=== PATIENT | female | born 1980 | race Caucasian/White ===

== ENCOUNTER 2017-07-30 22:45 | Emergency (ER) | payer OTHER ==
[~2017-07-30] VITALS: Wt 64.0 kg
[~2017-07-30 22:45] MED LIST: PREN1TAB49 PO
[2017-07-31 01:06] LABS: ADD UMIC YES; UR ASCORBIC ACID NEGATIVE (NEGATIVE); UR BACTERIA FEW /HPF (NONE SEEN); UR BILIRUBIN (Dip) NEGATIVE (NEGATIVE); UR BLOOD (Dip) 3+ mg/dL (NEGATIVE); UR CLARITY CLEAR (CLEAR); UR COLOR STRAW (YELLOW); UR GLUCOSE (Dip) NEGATIVE (NEGATIVE); UR KETONES (Dip) NEGATIVE (NEGATIVE); UR LEUKOCYTE ESTERASE (Dip) NEGATIVE Leu/ul (NEGATIVE); UR NITRITE (Dip) NEGATIVE (NEGATIVE); UR RBC 23 /HPF (0-5); UR SPECIFIC GRAVITY (Dip) 1.004 (1.003-1.030); UR SQUAMOUS EPITHELIAL CELL FEW /HPF (FEW); UR TOTAL PROTEIN (Dip) NEGATIVE (NEGATIVE); UR UROBILINOGEN (Dip) NEGATIVE (NEGATIVE)
[2017-07-31 01:23] LABS: BASOPHIL # 0.1 10^3/ul (0.0-0.1); BASOPHILS % 0.9 % (0.0-2.0); EOSINOPHILS # 0.2 10^3/ul (0.0-0.5); EOSINOPHILS % 3.1 % (0.0-7.0); HEMATOCRIT 37.4 % (37.0-47.0); HEMOGLOBIN 12.1 g/dl (12.0-16.0); LYMPHOCYTES # 2.3 10^3/ul (0.8-2.9); LYMPHOCYTES % 29.5 % (15.0-51.0); MEAN CORPUSCULAR HEMOGLOBIN 26.2 pg (29.0-33.0); MEAN CORPUSCULAR HGB CONC 32.4 g/dl (32.0-37.0); MEAN PLATELET VOLUME 11.3 fl (7.4-10.4); MONOCYTE # 0.5 10^3/ul (0.3-0.9); MONOCYTES % 6.3 % (0.0-11.0); NEUTROPHILS % 59.8 % (39.0-77.0); PLATELET COUNT 193 10^3/UL (140-415); RED BLOOD COUNT 4.62 10^6/ul (4.20-5.40); RED CELL DISTRIBUTION WIDTH 15.2 % (11.5-14.5); WHITE BLOOD COUNT 7.8 10^3/ul (4.8-10.8)
--- NOTE | 2017-07-31 01:55 | RADRPT ---
PROCEDURE: FIRST TRIMESTER OBSTETRICAL ULTRASOUND: CLINICAL INDICATION: 36 years of age, female. Vaginal bleeding COMPARISON: None available. TECHNIQUE: Real-time sonographic images of the pelvis were obtained transabdominally and transvagina lly utilizing holland scale, color, and Doppler imaging. FINDINGS: LMP May 18, 2017 EGA by dates:10 weeks 3 days EMBER by dates: February 22, 2018 Uterus: Anteverted . Myometrium is normal. Gestational sac: There is an intrauterine gestational sac. Negative for evidence of a yolk sac or em bryo. Mean sac diameter measures 1.4 cm, compatible with an average ultrasound age of 6 weeks 0 days . Cervix: Closed. Right ovary: Size: 3.2 x 1.8 x 2.2 cm. (Vol 6.8 mL) Appearance: Normal morphology. No masses. Dominant follicle or corpus luteum measures 2 cm. Venous f low is identified. Left ovary: Size: 2.5 x 1.4 x 1.6 cm. (Vol 3 mL) Appearance: Normal morphology. No masses. Venous flow is identified. Bladder: Visualized bladder is normal. Other: No free fluid. IMPRESSION: Sac-like structure in the endometrial cavity likely represents an intrauterine of unknown viability. The estimated gestational age by mean sac diameter would be 6 weeks 0 days. This is disco rdant with the expected gestational age by dates. Because an embryo or yolk sac are not identified, a definitive diagnosis of intrauterine cannot be made and ectopic cannot be abso lutely excluded but is extremely unlikely. Furthermore, viability cannot be established. Recommend c orrelation with serial Beta HCG and follow-up ultrasound in 7-10 days or earlier if clinically indic ated. RPTAT: HCTS Physician Leanne Date Time Electronically viewed and signed by Physician Leanne on 07/31/2017 01:54 CS/
--- NOTE | 2017-07-31 04:31 | ERD ---
ER Documentation Chief Complaint Date/Time DATE: 07/31/17 TIME: 04:28 Chief Complaint Vaginal bleed, pelvic pain today 8 weeks HPI 36-year-old female coming in complaining of vaginal bleeding with left-sided pelvic pain 1 day. Patient states she is 8 weeks . LMP May 18. Being seen at [facility]. Has not had an ultrasound today. A1. States she had some clots earlier today with some diffuse abdominal cramping. ROS All systems reviewed and are negative except as per history of present illness. Medications Home Meds Reported Medications Vits W-Ca,Fe,Fa(<1MG) () 1 Tab Tablet, 1 TAB PO DAILY 11/29/12 Allergies Allergies: Coded Allergies: No Known Allergy (Verified Allergy, Unknown, 06/05/08) PMhx/Soc History of Surgery: Yes (c/s x4) Hx Alcohol Use: No Hx Substance Use: No Hx Tobacco Use: No Smoking Status: Never smoker Physical Exam Vitals Vital Signs Date Time Temp Pulse Resp B/P Pulse Ox O2 Delivery O2 Flow Rate FiO2 07/30/17 23:09 98.1 75 20 115/64 100 Physical Exam GENERAL: The patient is well-appearing, well-nourished, in no acute distress CHEST: Clear to auscultation bilaterally. There are no rales, wheezes or rhonchi. HEART: Regular rate and rhythm. No murmurs, clicks, rubs or gallops. No S3 or S4. ABDOMEN: Normoactive bowel sounds. Soft abdomen. Mild tenderness to palpation in the left lower quadrant. No rebound tenderness. No organomegaly. BACK: No midline or flank tenderness. Result Diagram: 07/31/17 0105 Results 24 hrs Laboratory Tests Test 07/31/17 00:20 07/31/17 01:05 Urine Color STRAW Urine Clarity CLEAR Urine pH 7.0 Urine Specific [place] 1.004 Urine Ketones NEGATIVEmg/dL Urine Nitrite NEGATIVEmg/dL Urine Bilirubin NEGATIVEmg/dL Urine Urobilinogen NEGATIVEmg/dL Urine Leukocyte Esterase NEGATIVELeu/ul Urine Microscopic RBC 23/HPF Urine Microscopic WBC 1/HPF Urine Squamous Epithelial Cells FEW/HPF Urine Bacteria FEW/HPF Urine Hemoglobin 3+mg/dL Urine Glucose NEGATIVEmg/dL Urine Total Protein NEGATIVEmg/dl White Blood Count 7.810^3/ul Red Blood Count 4.6210^6/ul Hemoglobin 12.1g/dl Hematocrit 37.4% Mean Corpuscular Volume 81.0fl Mean Corpuscular Hemoglobin 26.2pg Mean Corpuscular Hemoglobin Concent 32.4g/dl Red Cell Distribution Width 15.2% Platelet Count 65841^3/UL Mean Platelet Volume 11.3fl Neutrophils % 59.8% Lymphocytes % 29.5% Monocytes % 6.3% Eosinophils % 3.1% Basophils % 0.9% Nucleated Red Blood Cells % 0.0/100WBC Neutrophils # (Manual) 4.710^3/ul Lymphocytes # 2.310^3/ul Monocytes # 0.510^3/ul Eosinophils # 0.210^3/ul Basophils # 0.110^3/ul Nucleated Red Blood Cells # 0.010^3/ul Beta HCG, Quantitative 01275.0mIU/ml Procedures/MDM ER course: Dr. Reza GELATIN [employer] was consulted given patient has a beta quant level of over 17,000 and left lower quadrant pain. Laborers recommend patient return within 2 days for reevaluation. She had low concern for ectopic at today's visit. MDM: I have low suspicion for ectopic however cannot be completely excluded at this time. Patient is recommended to return in 2 days for recheck of beta quant and ultrasound. I have low suspicion for hemodynamic instability as patient's vital signs are stable and patient is not having severe bleeding. Patient's Rh is positive, no indication for RhoGam injection. No signs of urinary tract infection on urinalysis. Patient is given strict ER precautions and will return within 2 days for reevaluation. All questions answered at discharge. Departure Diagnosis: Primary Impression: Threatened Condition: Stable Patient Instructions: Possible Miscarriage (Threatened ) Additional Instructions: FOLLOW UP WITH YOUR PRIMARY CARE PHYSICIAN TOMORROW.Return to this facility if you are not improving as expected. LATOYA BENTLEY PA-C Jul 31, 2017 04:31
[2017-07-31 04:45] VITALS: BP 109/67; PULSE 73; RESP 17; TEMP 97.9
== END 2017-07-31 04:45 | disposition home or self-care (01) ==
LOC: FTE 22:45
DX: O20.0 Threatened abortion (principal); R10.2 Pelvic and perineal pain; Z3A.01 Less than 8 weeks gestation of pregnancy
CPT/HCPCS: 76801; 76817; 81001; 84702; 85025; 86900; 86901; Z7502

== ENCOUNTER 2017-08-02 17:45 | Emergency (ER) | payer OTHER ==
[~2017-08-02] VITALS: Ht 160 cm; Wt 63.5 kg
[2017-08-02 19:04] VITALS: Ht 160 cm; Wt 63.5 kg
[2017-08-02] MEDS ORDERED: ACETAMINOPHEN 325 MG TAB PO STA (23:31)
[2017-08-02] MEDS ORDERED: SOD CHLORIDE 0.9% 1,000 ML IV STA (23:31)
--- NOTE | 2017-08-02 23:31 | ERD ---
ER Documentation Chief Complaint Date/Time DATE: 08/02/17 TIME: 23:22 Chief Complaint 6 wks , vag bleeding HPI This , 6 weeks , vaginal bleeding x 3 days, abd cramping, headache pt reports that she is passing clots and changing minnie pad every 3-5 hours. Patient denies nausea, vomiting, fever, chills. ROS All systems reviewed and are negative except as per history of present illness. Medications Home Meds Reported Medications Vits W-Ca,Fe,Fa(<1MG) () 1 Tab Tablet, 1 TAB PO DAILY 11/29/12 Allergies Allergies: Coded Allergies: No Known Allergy (Verified , 08/02/17) PMhx/Soc Medical and Surgical Hx: pt denies Medical Hx History of Surgery: Yes (c/s x4) Anesthesia Reaction: No Hx Neurological Disorder: No Hx Respiratory Disorders: No Hx Cardiac Disorders: No Hx Psychiatric Problems: No Hx Miscellaneous Medical Probl: No Hx Alcohol Use: No Hx Substance Use: No Hx Tobacco Use: No Smoking Status: Never smoker Physical Exam Vitals Vital Signs Date Time Temp Pulse Resp B/P Pulse Ox O2 Delivery O2 Flow Rate FiO2 08/02/17 19:04 99.0 78 20 124/64 100 Physical Exam Const: [] Head: Atraumatic Eyes: Normal Conjunctiva ENT: Normal External Ears, Nose and Mouth. Neck: Full range of motion..~ No meningismus. Resp: Clear to auscultation bilaterally Cardio: Regular rate and rhythm, no murmurs Abd: Soft, non tender, non distended. Normal bowel sounds Skin: No petechiae or rashes Back: No midline or flank tenderness Ext: No cyanosis, or edema Neur: Awake and alert Psych: Normal Mood and Affect Result Diagram: 08/02/17 0200 Results 24 hrs Laboratory Tests Test 08/02/17 23:40 08/03/17 00:40 White Blood Count 11.310^3/ul Red Blood Count 4.5810^6/ul Hemoglobin 12.1g/dl Hematocrit 37.0% Mean Corpuscular Volume 80.8fl Mean Corpuscular Hemoglobin 26.4pg Mean Corpuscular Hemoglobin Concent 32.7g/dl Red Cell Distribution Width 15.2% Platelet Count 12018^3/UL Mean Platelet Volume 11.9fl Neutrophils % 72.0% Lymphocytes % 21.1% Monocytes % 5.0% Eosinophils % 1.0% Basophils % 0.5% Nucleated Red Blood Cells % 0.0/100WBC Neutrophils # (Manual) 8.210^3/ul Lymphocytes # 2.410^3/ul Monocytes # 0.610^3/ul Eosinophils # 0.110^3/ul Basophils # 0.110^3/ul Nucleated Red Blood Cells # 0.010^3/ul Beta HCG, Quantitative 06376.0mIU/ml Urine Color RED Urine Clarity CLOUDY Urine pH 6.0 Urine Specific [place] 1.012 Urine Ketones 1+mg/dL Urine Nitrite NEGATIVEmg/dL Urine Bilirubin NEGATIVEmg/dL Urine Urobilinogen NEGATIVEmg/dL Urine Leukocyte Esterase 1+Mary/ul Urine Hemoglobin 3+mg/dL Urine Glucose NEGATIVEmg/dL Urine Total Protein 2+mg/dl Current Medications Medications (Trade) Dose Ordered Sig/Krishna Route PRN Reason Start Time Stop Time Status Last Admin Dose Admin Sodium Chloride (NS) 1,000 ml @ 1,000 mls/hr Q1H STAT IV 08/02/17 23:31 08/03/17 00:30 DC 08/03/17 00:32 Acetaminophen (Tylenol Tab) 650 mg ONCE STAT PO 08/02/17 23:31 08/02/17 23:33 DC 08/03/17 00:31 Interpretation text CBC shows no evidence of hemorrhage or infection, WBCs are slightly elevated at 11.3 this is not an abnormal finding in Urinalysis positive for leukocytosis, hematuria, negative for nitrates. Findings consistent with a urinary tract infection patient will start on Keflex 500 mg 3 times daily 7 days. Beta hCG quantitative 12,637.mlU/ml finding in range for a 6 weeks . Procedures/MDM This 36-year-old female presents to emergency department for evaluation of vaginal bleeding. Patient is , 6 weeks , reports bleeding 3 days. Reports cramping, clots, headache, denies nausea or vomiting. Patient is wearing a minnie-pad states she is having to change it every 3-4 hours.Diagnostic OB ultrasound findings by radiologist irregular intrauterine gestational sac with no pole or yolk sac identified corresponding to gestational age of 5 weeks 5 days by ultrasound criteria, decreased in size when compared with prior exam on 07/31/17 while this may reflect failed early , anembryonic , a pseudo-gestational sac related to an ectopic is not excluded and short interval follow-up is recommended Beta hCG quantitative 12,637.mlU/ml, This is down from 17,000 48 hours ago. Plan to discharge patient home with Keflex 500 mg 3 times daily 7 days for urinary tract infection, return in 48 hours for repeat ultrasound and laboratory testing, return to emergency department for increased bleeding, clots , nausea or vomiting. Patient is stable with no new complaints during ER course , clinically there is no current evidence to suggest Ovarian torsion, molar , or any other emergent condition appearing to require further evaluation or hospitalization. I feel the patient is stable for discharge at this time. I have discussed results, examination findings, the treatment plan with the patient and family present prior to discharge. Indications for emergent reevaluation, side effects of medication were also discussed. All questions were answered. Patient verbalizes understanding and agrees with plan of care. Departure Diagnosis: Primary Impression: Vaginal bleeding in patient at less than 20 weeks gestation Additional Impressions: Threatened miscarriage in early UTI (urinary tract infection) Urinary tract infection type: acute cystitis Hematuria presence: with hematuria Qualified Code: N30.01 - Acute cystitis with hematuria Condition: Good Patient Instructions: Bleeding During Early Additional Instructions: Return to emergency department in 48 hours for repeat ultrasound and laboratory testing Comments Thank you for for coming to [facility] for your care today. Please ask your nurse or provider if you have questions about your care today and do not leave until all your questions have been answered. Please use any medications given as directed and follow-up with your doctor (or the doctor you were referred to) in the next 2-3 days. If you do not have a primary care doctor you may follow up at the [facility] [place] (listed below). You may also use motrin and tylenol as needed for fever and/or pain unless instructed otherwise by your provider or nurse. Indications for more urgent follow-up have been discussed, but you may return to the Emergency Department at ANY time for any worrisome or worsening symptoms. If you have abdominal pain, please know that no test or exam you received is perfect and you should follow up within 8 hours for continued pain. If you had any imaging studies today, such as an X-Ray or CT Scan, these studies will be reviewed later by a radiologist. You will be called if there are important findings that were not identified today, so make sure the contact information you provided at registration is correct. If you received any narcotic pain control medicine today, such as Vicodin, Morphine or Dilaudid, your coordination and judgment may be affected for a number of hours. Please do not drive or operate heavy machinery, and you may want someone to assist you at home. If you were given a prescription for narcotic medication, be aware that it is very addictive- use sparingly and only if necessary. VIJAY MEZA Aug 02, 2017 23:30
[2017-08-03 00:07] LABS: BASOPHIL # 0.1 10^3/ul (0.0-0.1); BASOPHILS % 0.5 % (0.0-2.0); EOSINOPHILS # 0.1 10^3/ul (0.0-0.5); HEMOGLOBIN 12.1 g/dl (12.0-16.0); LYMPHOCYTES # 2.4 10^3/ul (0.8-2.9); LYMPHOCYTES % 21.1 % (15.0-51.0); MEAN CORPUSCULAR HEMOGLOBIN 26.4 pg (29.0-33.0); MEAN CORPUSCULAR HGB CONC 32.7 g/dl (32.0-37.0); MEAN CORPUSCULAR VOLUME 80.8 fl (82.0-101.0); MEAN PLATELET VOLUME 11.9 fl (7.4-10.4); MONOCYTE # 0.6 10^3/ul (0.3-0.9); PLATELET COUNT 187 10^3/UL (140-415); RED BLOOD COUNT 4.58 10^6/ul (4.20-5.40); RED CELL DISTRIBUTION WIDTH 15.2 % (11.5-14.5); WHITE BLOOD COUNT 11.3 10^3/ul (4.8-10.8)
--- NOTE | 2017-08-03 00:16 | RADRPT ---
PROCEDURE: US OB. CLINICAL INDICATION: Vaginal bleeding. TECHNIQUE: Transabdominal and transvaginal sonographic evaluation of the pelvis using holland scale an d color Doppler imaging was performed. COMPARISON: Ultrasound dated 07/31/2017. FINDINGS: There is an irregular gestational sac with no pole or yolk sac identified. The mean sac diameter equals 1.11 cm. The estimated gestational age equals 5 weeks 5 days by ultrasound criteria decreased in size when co mpared the prior examination. No subchorionic hemorrhage is identified. Right ovary: 2.6 x 2.3 x 2.4 cm. Normal flow and echogenicity. Left ovary: 3.0 x 1.6 x 1.7 cm. Normal flow and echogenicity IMPRESSION: 1. Irregular intrauterine gestational sac with no pole or yolk sac identified corresponding t o a gestational age of 5 weeks 5 days by ultrasound criteria, decreased in size when compared with t he prior exam of 07/31/2017. While this may reflect failed early /anembryonic , a pseudogestational sac related to an ectopic is not excluded and short interval follow-up i s recommended. RPTAT: HLBP .Valentín Stallworth MD, Date Time Electronically viewed and signed by .Valentín Stallworth MD, MD on 08/03/2017 00:16 .P/
[2017-08-03 01:48] LABS: ADD UMIC YES; UR ASCORBIC ACID NEGATIVE (NEGATIVE); UR BILIRUBIN (Dip) NEGATIVE (NEGATIVE); UR BLOOD (Dip) 3+ mg/dL (NEGATIVE); UR CLARITY CLOUDY (CLEAR); UR COLOR RED (YELLOW); UR GLUCOSE (Dip) NEGATIVE (NEGATIVE); UR KETONES (Dip) 1+ mg/dL (NEGATIVE); UR LEUKOCYTE ESTERASE (Dip) 1+ Leu/ul (NEGATIVE); UR NITRITE (Dip) NEGATIVE (NEGATIVE); UR SPECIFIC GRAVITY (Dip) 1.012 (1.003-1.030); UR TOTAL PROTEIN (Dip) 2+ mg/dl (NEGATIVE); UR UROBILINOGEN (Dip) NEGATIVE (NEGATIVE)
[2017-08-03] MEDS ORDERED: CEPH-443 PO (02:11)
[2017-08-03] MEDS ORDERED: CEPHALEXIN 500 MG CAP PO ONE (02:30)
[2017-08-03 02:33] VITALS: BP 115/72; PULSE 65; RESP 16
== END 2017-08-03 02:35 | disposition home or self-care (01) ==
LOC: FTE 17:45
DX: O20.0 Threatened abortion (principal); O23.11 Infections of bladder in pregnancy, first trimester; Z3A.01 Less than 8 weeks gestation of pregnancy
CPT/HCPCS: 76801; 76817; 81001; 84702; 85025; J7030; Z7502; Z7610

== ENCOUNTER 2017-08-05 08:51 | Emergency (ER) | payer OTHER ==
[2017-08-05] VITALS (7 sets, daily range): BP systolic 98–105; BP diastolic 49–64; PULSE 62–70; RESP 16–18; TEMP 98.5
[~2017-08-05] VITALS: Wt 64.6 kg
[~2017-08-05 08:51] MED LIST changes: +CEFAZOLIN 1 GM INJ ONE; +CEPH-443 PO; +SEVOFLURANE 15 MIN ONE
[2017-08-05] MEDS ORDERED: ACETAMINOPHEN 500 MG TAB PO STA (09:28)
[2017-08-05 09:52] LABS: BASOPHIL # 0.1 10^3/ul (0.0-0.1); BASOPHILS % 0.9 % (0.0-2.0); EOSINOPHILS # 0.1 10^3/ul (0.0-0.5); EOSINOPHILS % 1.6 % (0.0-7.0); HEMATOCRIT 34.6 % (37.0-47.0); LYMPHOCYTES # 2.1 10^3/ul (0.8-2.9); LYMPHOCYTES % 25.8 % (15.0-51.0); MEAN CORPUSCULAR HGB CONC 31.8 g/dl (32.0-37.0); MEAN CORPUSCULAR VOLUME 81.8 fl (82.0-101.0); MEAN PLATELET VOLUME 11.9 fl (7.4-10.4); MONOCYTE # 0.4 10^3/ul (0.3-0.9); MONOCYTES % 5.4 % (0.0-11.0); NEUTROPHIL # 5.3 10^3/ul (1.6-7.5); NEUTROPHILS % 65.9 % (39.0-77.0); PLATELET COUNT 179 10^3/UL (140-415); RED BLOOD COUNT 4.23 10^6/ul (4.20-5.40); RED CELL DISTRIBUTION WIDTH 15.3 % (11.5-14.5)
--- NOTE | 2017-08-05 10:18 | RADRPT ---
PROCEDURE: OBSTETRICAL ULTRASOUND WITH ENDOVAGINAL IMAGES CLINICAL INDICATION: Vaginal Bleed () TECHNIQUE: Multiple sonographic images of the pelvis were obtained utilizing a transabdominal and endovaginal technique. The images were reviewed on a PACS workstation. COMPARISON: Obstetrical ultrasound from 08/02/2017 LMP: 06/17/2017 Gestational age by LMP: 7 weeks, 0 days FINDINGS: The uterus measures 10.4 x 5.2 x 6.1 cm. The endometrium is focally heterogeneous and thickened at the level of the lower uterine segment, me asuring up to 28 mm. No abnormal vascularity is identified in the endometrium although there is an i rregular sac-like structure within it measuring up to 1.1 x 1.0 cm in maximum axial dimensions which has decreased in size since the prior ultrasound study from 08/02/2017. The right ovary measures 3.4 x 2.3 x 1.8 cm. The left ovary measures 2.9 x 2.1 x 2.0 cm. There is no rmal vascular flow in both ovaries. There is a 1.4 cm thick-walled cystic lesion in the right ovary which may be a hemorrhagic/corpus susy teal cyst. It is not associated with significant vascular flow. No significant pelvic free fluid is identified. IMPRESSION: Focal heterogeneity and thickening of the endometrium to 28 mm at the level of the lower uterine seg ment with an irregular cystic lesion identified in the endocervical canal at this level measuring up to 1.1 cm which is decreased in size. Findings suggest an in progress although an ectopic is not entirely excluded. Short-term follow-up ultrasound and serial Beta HCG measurements are recommended for further evaluation. 1.4 cm complex cystic lesion in the right ovary may be a hemorrhagic/corpus luteal cyst. Attention o n follow-up is recommended. RPTAT: EE Physician J Carlos Date Time Electronically viewed and signed by Johnathan Martínez Physician on 08/05/2017 10:18 /
--- NOTE | 2017-08-05 10:44 | ERD ---
ER Documentation Chief Complaint Date/Time DATE: 08/05/17 TIME: 10:43 Chief Complaint 6 WEEKS PREG SENT FOR LAB WORK HPI This a 36-year-old female presents emergency department today complaining of vaginal bleeding, States she has some crampy abdominal pain, headache. States that she was seen here couple of days ago for the same thing. States that she is approximately 6 weeks . States she has not gone to her technical sales engineer or primary care doctor. States she has not taken any medication for the pain because "she was not given any". Denies any fevers or chills.Patient states she was instructed to return in 48 hours for recheck. ROS All systems reviewed and are negative except as per history of present illness. Medications Home Meds Active Scripts Cephalexin* (Keflex*) 500 Mg Capsule, 500 MG PO TID for 7 Days, CAP Prov:DERRICKVIJAY 08/03/17 Reported Medications Vits W-Ca,Fe,Fa(<1MG) () 1 Tab Tablet, 1 TAB PO DAILY 11/29/12 Allergies Allergies: Coded Allergies: No Known Allergy (Verified , 08/05/17) PMhx/Soc History of Surgery: Yes (c/s x4) Anesthesia Reaction: No Hx Neurological Disorder: No Hx Respiratory Disorders: No Hx Cardiac Disorders: No Hx Psychiatric Problems: No Hx Miscellaneous Medical Probl: No Hx Alcohol Use: No Hx Substance Use: No Hx Tobacco Use: No Smoking Status: Never smoker Physical Exam Vitals Vital Signs Date Time Temp Pulse Resp B/P Pulse Ox O2 Delivery O2 Flow Rate FiO2 08/05/17 08:54 98.0 79 18 141/70 99 Physical Exam Const: NAD Head: Atraumatic Eyes: Normal Conjunctiva ENT: Normal External Ears, Nose and Mouth. Neck: Full range of motion..~ No meningismus. Resp: Clear to auscultation bilaterally Cardio: Regular rate and rhythm, no murmurs Abd: Soft, Mild diffuse lower abdominal pain non distended. Normal bowel sounds. No specific tenderness McBurney's. Skin: No petechiae or rashes Back: No midline or flank tenderness Ext: No cyanosis, or edema Neur: Awake and alert Psych: Normal Mood and Affect Result Diagram: 08/05/17 0940 Results 24 hrs Laboratory Tests Test 08/05/17 09:40 White Blood Count 8.010^3/ul Red Blood Count 4.2310^6/ul Hemoglobin 11.0g/dl Hematocrit 34.6% Mean Corpuscular Volume 81.8fl Mean Corpuscular Hemoglobin 26.0pg Mean Corpuscular Hemoglobin Concent 31.8g/dl Red Cell Distribution Width 15.3% Platelet Count 76917^3/UL Mean Platelet Volume 11.9fl Neutrophils % 65.9% Lymphocytes % 25.8% Monocytes % 5.4% Eosinophils % 1.6% Basophils % 0.9% Nucleated Red Blood Cells % 0.0/100WBC Neutrophils # 5.310^3/ul Lymphocytes # 2.110^3/ul Monocytes # 0.410^3/ul Eosinophils # 0.110^3/ul Basophils # 0.110^3/ul Nucleated Red Blood Cells # 0.010^3/ul Beta HCG, Quantitative 5368.3mIU/ml Current Medications Medications (Trade) Dose Ordered Sig/Krishna Route PRN Reason Start Time Stop Time Status Last Admin Dose Admin Acetaminophen (Tylenol Tab) 500 mg ONCE STAT PO 08/05/17 09:28 08/05/17 09:30 DC 08/05/17 10:08 DIAGNOSTIC IMAGING REPORT Patient: VINCENT MCPHERSON : 1980 Age: 36 Sex: F MR #: [id number] DOS: 08/05/17927 Ordering MD: GRACIELA SHI PA-C Location: [facility] Room/Bed: PROCEDURE: OBSTETRICAL ULTRASOUND WITH ENDOVAGINAL IMAGES CLINICAL INDICATION: Vaginal Bleed () TECHNIQUE: Multiple sonographic images of the pelvis were obtained utilizing a transabdominal and endovaginal technique. The images were reviewed on a PACS workstation. COMPARISON: Obstetrical ultrasound from 08/02/2017 LMP: 06/17/2017 Gestational age by LMP: 7 weeks, 0 days FINDINGS: The uterus measures 10.4 x 5.2 x 6.1 cm. The endometrium is focally heterogeneous and thickened at the level of the lower uterine segment, measuring up to 28 mm. No abnormal vascularity is identified in the endometrium although there is an irregular sac-like structure within it measuring up to 1.1 x 1.0 cm in maximum axial dimensions which has decreased in size since the prior ultrasound study from 08/02/2017. The right ovary measures 3.4 x 2.3 x 1.8 cm. The left ovary measures 2.9 x 2.1 x 2.0 cm. There is normal vascular flow in both ovaries. There is a 1.4 cm thick-walled cystic lesion in the right ovary which may be a hemorrhagic/corpus luteal cyst. It is not associated with significant vascular flow. No significant pelvic free fluid is identified. IMPRESSION: Focal heterogeneity and thickening of the endometrium to 28 mm at the level of the lower uterine segment with an irregular cystic lesion identified in the endocervical canal at this level measuring up to 1.1 cm which is decreased in size. Findings suggest an in progress although an ectopic is not entirely excluded. Short-term follow-up ultrasound and serial Beta HCG measurements are recommended for further evaluation. 1.4 cm complex cystic lesion in the right ovary may be a hemorrhagic/corpus luteal cyst. Attention on follow-up is recommended. RPTAT: EE Johnathan Martínez Physician Date Time Electronically viewed and signed by Johnathan Martínez Physician on 08/05/2017 10:18 RA/ CC: GRACIELA SHI PA-C Procedures/[facility] This is a [id number] female who presents the emergency department today complaining of continued vaginal bleeding patient was approximately 6 weeks . Upon review of patient's medical records patient was seen here on July 30 and number and 13. Her beta quant Has down trended from 17,000-12,637 on her last visit. I did recheck patient's beta quant as well as do an ultrasound. Laboratory work shows mildly decreased hemoglobin. Platelets are within normal limits. Beta quant hCG 5368.3 Rh status O+ Ultrasound Shows focal heterogenicity and thickening of the endometrium to 28 mm at the level of the lower uterine segment with an irregular cystic lesion identified in the endocervical canal at the level measuring up to 1.1 cm which is decreased in size. There is no significant pelvic free fluid. There is a 1.4 cm walled cystic lesion in the right ovary which may be hemorrhagic or corpus luteal cyst. There is normal vascular flow in both ovaries. Patient symptoms at this time is consistent with vaginal bleeding in early pregnancyAnd incomplete . Patient is afebrile and otherwise well-appearing. I have low suspicion for ectopic , tubo ovarian abscess, ovarian torsion. Patient's beta quant is down trending.There is no indication for transfusion at this time. Given that this is the patient third visit I discussed the patient with Dr. Ohara and he recommended I place a call to the laborist sandblaster stone, Dr. Dominguez Who came down and saw the patient and has agreed to do a D&C based on her ultrasound and laboratory work. Risks and benefits of the procedure were explained to the patient and she agreed to proceed. Any further documentation orders placed will be completed by Dr. Ohara or the admitting physician Departure Diagnosis: Primary Impression: Incomplete Condition: Fair GRACIELA SHI PA-C Aug 05, 2017 10:44 GRACIELA SHI PA-C Aug 05, 2017 10:44
[2017-08-05] MEDS ORDERED: LIDOCAINE 2% (SDV) 5 ML INJ ONE (16:29)
[2017-08-05] MEDS ORDERED: MEPERIDINE 100 MG INJ ONE (16:29)
[2017-08-05] MEDS ORDERED: PROPOFOL 20 ML ONE (16:29)
[2017-08-05] MEDS ORDERED: METOCLOPRAMIDE 10 MG INJ ONE (16:43)
[2017-08-05] MEDS ORDERED: ONDANSETRON 4 MG INJ ONE (16:43)
--- NOTE | 2017-08-05 16:49 | OPPN ---
Date/Time of Note Date/Time of Note DATE: 08/05/17 TIME: 16:48 Operative Report Free Text/Dictation Incomplete @6-8 wks Preoperative Diagnosis Incomplete @6-8 wks Postoperative Diagnosis Incomplete @6-8 wks Operation/Procedure Performed D&C&suction Provider: JOSH COLEMAN M.D. Anesthesia Type: general Estimated blood loss: 0 - 10 ml's Transfusion Required: no Specimens POC Grafts/Implants: none Complications: no JOSH COLEMAN M.D. Aug 05, 2017 16:49
[2017-08-05] MEDS ORDERED: DIPHENHYDRAMINE 50 MG INJ IV PRN (17:00)
[2017-08-05] MEDS ORDERED: hydrALAzine 20 MG INJ IV PRN (17:00)
[2017-08-05] MEDS ORDERED: OXYCODONE/ACETAMINOPHEN (5/325) TAB PO PRN ×2 (17:00)
[2017-08-05] MEDS ORDERED: ONDANSETRON 4 MG INJ IV PRN (17:00)
[2017-08-05] MEDS ORDERED: LABETALOL HCL 20MG INJ IV PRN (17:00)
[2017-08-05] MEDS ORDERED: EPHEDrine SULFATE 50 MG/5 ML SYG IV PRN (17:00)
[2017-08-05] MEDS ORDERED: FENTAnyl 50 MCG/ML VIAL IV PRN ×3 (17:00)
[2017-08-05] MEDS ORDERED: MIDAZOLAM 1 MG/ML 2 ML INJ IV PRN (17:00)
[2017-08-05] MEDS ORDERED: METOCLOPRAMIDE 10 MG INJ IV PRN (17:00)
[2017-08-05] MEDS ORDERED: MEPERIDINE 25 MG INJ IV PRN (17:00)
--- NOTE | 2017-08-05 22:45 | HP ---
DATE OF ADMISSION: 08/05/2017 HISTORY OF PRESENT ILLNESS: A 36-year-old diagnosed with complete , admitted through the emergency room. Patient admitted to the emergency room with vaginal bleeding. PAST MEDICAL HISTORY: Denies. ALLERGIES: NKDA. PHYSICAL EXAMINATION: VITAL SIGNS: Stable. GENERAL: Normal. ABDOMEN: Nontender, nondistended. GENITOURINARY: Around 1-2 cc collapse was noted in the vaginal vault. ASSESSMENT AND PLAN: A 36-year-old diagnosed with incomplete . Patient was consented for dilation and suction. Patient signed the consent and was taken to the operating room. Dictated By: Uzair Colbert MD /randi/felipe /Document#: [id number]
--- NOTE | 2017-08-08 11:47 | OPR ---
DATE OF OPERATION: 08/05/2017 PREOPERATIVE DIAGNOSIS: Incomplete at 6-8 weeks . POSTOPERATIVE DIAGNOSIS: Incomplete at 6-8 weeks . OPERATIVE PROCEDURE: Dilation, curettage and suction. SURGEON: Uzair Colbert MD ANESTHESIOLOGIST: Dr. Shoemaker ANESTHESIA: General. COMPLICATIONS: None. ESTIMATED BLOOD LOSS: Less than 10 cc. TECHNIQUE: The patient was taken to the operating where general anesthesia was found to be adequate. Patient was placed in dorsal lithotomy position after prep and drape. A vaginal speculum was placed inside the vaginal vault until lip of the cervix was grasped by single-tooth tenaculum. Cervix was 1 cm open. Suction tip size 7 was inserted. Intrauterine cavity was suctioned. Sharp of the intrauterine cavity was done and suction was reinserted. Intrauterine cavity was suctioned again. Instruments removed. Patient tolerated the procedure well and was transferred to recovery room in stable condition. There was no complication for this procedure. Dictated By: Uzair Colbert MD /[email or web address]/[email or web address] /Document#: [id number]
== END 2017-08-05 18:03 | disposition home or self-care (01) ==
LOC: FTE 08:51 → E/R 18:03
DX: O03.4 Incomplete spontaneous abortion without complication (principal)
CPT/HCPCS: 76801; 76817; 84702; 85025; 88305; J0690; J2175; Z7502; Z7512; Z7610; J2405; J2765